=== PATIENT | male | born 1950 | race Caucasian/White ===

== ENCOUNTER 2016-12-20 09:03 | Outpatient (CLI) | payer OTHER ==
--- NOTE | 2016-12-20 11:46 | DIAGNOSTIC IMAGING REPORT ---
PROCEDURE: US VENOUS - BILATERAL EXT INDICATION: BILAT LEG EDEMA,CHF,DIABETIC TECHNIQUE: Duplex sonography of the deep and superficial venous system in both lower extremities was performed. Compression and augmentation techniques were used. The patient was scanned in the upright position. Surveillance of the venous system during Valsalva maneuver when appropriate was performed. COMPARISON: None. FINDINGS: Each interrogated segment of the deep vein demonstrates normal compressibility, augmentation, and normal color Doppler flow without filling defect. No thrombus in either greater saphenous or short saphenous vein. There is venous insufficiency of the proximal left superficial femoral vein (8.8 seconds). Left common femoral and greater saphenous veins are competent. Left greater saphenous vein measures 3.9 mm proximally, 5.2 mm mid and 4.4 mm distally. There is venous insufficiency in the right mid greater saphenous vein (6.7 mm diameter, 9.4 seconds) and distal greater saphenous vein (diameter 4.8 mm, 10.2 seconds). Common femoral, superficial femoral and proximal greater saphenous veins are competent. Right greater saphenous vein measures 6 mm proximally. IMPRESSION: 1. There is venous insufficiency of the right mid and distal greater saphenous vein 2. There is venous insufficiency of the left proximal superficial femoral vein. 3. No evidence of a DVT in both lower extremities.
--- NOTE | 2016-12-20 12:10 | DIAGNOSTIC IMAGING REPORT ---
PROCEDURE: US ART LOWER EXT WITH [id number]-B/L INDICATION: BILAT LEG EDEMA,CHF,DIABETIC TECHNIQUE: Preexercise ABIs were performed. The patient was exercised ( 25 toe-ups) and postexercise ABIs were repeated followed by color Doppler duplex imaging of the lower extremities. COMPARISON: None. FINDINGS: Cardiac arrhythmia. RIGHT LOWER EXTREMITY: ABIs: Pre exercise ABIs: Posterior tibial and dorsalis pedis both 1.1. Post exercise ABIs: Posterior tibial and dorsalis pedis both 1.5. VESSELS: Mild atherosclerosis. Normal triphasic wave form throughout the right lower extremity. RIGHT LOWER EXTREMITY PEAK SYSTOLIC VELOCITIES: External iliac: 82 cm/second. Common femoral artery: 73 cm/second. Profunda femoral artery: 46 cm/second. Proximal superficial femoral artery: 78 cm/second. Mid superficial femoral artery: 68 cm/second. Distal superficial femoral artery: 68 cm/second. Popliteal artery: 45 cm/second. Proximal posterior tibial artery: 56 cm/second. Proximal anterior tibial artery: 50 cm/second. Distal posterior tibial artery: 80 cm/second. Dorsalis pedis artery: 24 cm/second. LEFT LOWER EXTREMITY: ABIs: Pre exercise ABIs: Posterior tibial and dorsalis pedis both 1.2. Post exercise ABIs: Posterior tibial 1.4 and dorsalis pedis 1.5. VESSELS: Mild atherosclerosis. Normal triphasic wave form throughout the left lower extremity. LEFT LOWER EXTREMITY PEAK SYSTOLIC VELOCITIES: External iliac: 85 cm/second. Common femoral artery: 59 cm/second. Profunda femoral artery: 33 cm/second. Proximal superficial femoral artery: 85 cm/second. Mid superficial femoral artery: 75 cm/second. Distal superficial femoral artery: 77 cm/second. Popliteal artery: 56 cm/second. Proximal posterior tibial artery: 82 cm/second. Proximal anterior tibial artery: 52 cm/second. . Distal posterior tibial artery: 173 cm/second. Dorsalis pedis artery: 48 cm/second. IMPRESSION: 1. Cardiac arrhythmia 2. Right lower extremity: No evidence of resting or postexercise arterial insufficiency. Mild atherosclerosis with normal triphasic wave form. 3. Left lower extremity: No evidence of resting or postexercise arterial insufficiency. Mild atherosclerosis with triphasic wave form throughout the left lower extremity. There is a left posterior tibial artery high-grade stenosis at the ankle.
== END 2016-12-20 23:00 ==
LOC: US SRH 09:03
DX: I87.2 Venous insufficiency (chronic) (peripheral) (principal); I70.202 Unspecified atherosclerosis of native arteries of extremities, left leg